=== PATIENT | female | born 1980 | race Hispanic/Latino ===

== ENCOUNTER 2018-04-19 13:57 | Outpatient (CLI) | payer OTHER ==
--- NOTE | 2018-04-19 18:04 | BD ---
Exam: DEXA Bone Density 04/19/18 HISTORY: Recent history of a fracture involving the sacrum. FINDINGS: Lumbar Spine: BMD (g/cm2) T-Score Z-Score L1 0.895 -0.9 -0.8 L2 1.003 -0.2 -0.1 L3 0.965 -1.1 -1,0 L4 0.936 -1.1 -1.0 L1-L4 0.951 -0.9 -0.8 Left Femoral Neck: 0.777 -0.6 0.4 Total Femur: 0.971 0.1 0.3 Impression: Normal bone mineralization of the lumbar spine and left femoral neck. POS: [facility]
== END 2018-04-19 13:58 | disposition home or self-care (01) ==
LOC: BICMAMMO 13:57
PROVIDERS: ATTEND Family Medicine
DX: Z13.820 Encounter for screening for osteoporosis (principal); S32.2XXA Fracture of coccyx, initial encounter for closed fracture; S32.9XXA Fracture of unspecified parts of lumbosacral spine and pelvis, initial encounter for closed fracture
CPT/HCPCS: 77080